=== PATIENT | male | born 1950 | race Two or more races ===

== ENCOUNTER 2019-09-24 22:37 | Emergency (ER) | payer OTHER ==
[~2019-09-24] VITALS: Ht 180.3 cm; Wt 83.0 kg
[~2019-09-24 22:37] MED LIST: ASPI-404 PO; FURO1TAB33 PO; GABA300C10 PO; KEP500T PO; METO25TA5 PO; PRA1C PO; SIMV-8 PO; WARF5TAB PO; WARF7.5T PO
[2019-09-25] MEDS ORDERED: LIDOCAINE VISCOUS 2% 15ML UD MT ONE
[2019-09-25 00:16] LABS: Basophils # (auto) 0.1 uL; Basophils % (auto) 0.6 % (0.0-2.0); Eosinophils # (auto) 0 uL; Eosinophils % (auto) 0.2 % (0.0-7.0); Hematocrit 34.8 % (41.0-53.0); Hemoglobin 11.4 g/dL (13.5-17.5); Lymphocytes # (auto) 0.5 uL; Lymphocytes % (auto) 4.6 % (10.0-50.0); Mean Corpuscular Hemoglobin 30.3 pg (28.0-32.0); Mean Corpuscular Hgb Conc. 32.8 g/dL (32.0-36.0); Mean Corpuscular Volume 92.4 fL (80.0-100.0); Monocytes # (auto) 0.7 uL; Monocytes % (auto) 5.7 % (0.0-12.0); Neutrophils # (auto) 10.4 uL; Neutrophils % (auto) 88.9 % (37.0-80.0); Platelet Count (auto) 150 10^3/uL (140-450); Red Blood Cells 3.77 10^6/uL (4.5-5.90); Red Cell Distribution Width 15.7 % (11.8-14.3); White Blood Cell 11.6 10^3/uL (4.4-10.8)
[2019-09-25 00:31] LABS: Albumin 3.5 g/dL (3.4-5.0); BUN/Creatinine Ratio 27.7; Calcium 8.4 mg/dL (8.5-10.1); Potassium 3.8 mmol/L (3.5-5.1)
[2019-09-25 00:34] LABS: Bilirubin, Total 2.2 mg/dL (0.2-1.0); Total Protein 6.8 g/dL (6.4-8.2)
[2019-09-25 00:41] LABS: INR 1.92 (0.9-1.15); Partial Thromboplastin Time 26.9 sec (23.64-32.05)
[2019-09-25 01:42] LABS: Hematocrit 33.4 % (41.0-53.0)
[2019-09-25] MEDS ORDERED: SODIUM CHLORIDE 0.9% 500 ML IV ONE (02:00)
[2019-09-25] MEDS ORDERED: SODIUM CHLORIDE 0.9% 1,000 ML IV ONE (02:00)
[2019-09-25 04:43] LABS: Hematocrit 32.1 % (41.0-53.0); Hemoglobin 10.6 g/dL (13.5-17.5)
[2019-09-25 07:00] VITALS: BP 115/69
== END 2019-09-25 07:30 | disposition short-term general hospital (02) ==
LOC: EDBD 22:37 → ER 22:39
DX: R04.0 Epistaxis (principal); I11.0 Hypertensive heart disease with heart failure; I50.9 Heart failure, unspecified; I25.2 Old myocardial infarction; Z95.1 Presence of aortocoronary bypass graft; Z86.73 Personal history of transient ischemic attack (TIA), and cerebral infarction without residual deficits; Z88.6 Allergy status to analgesic agent; Z79.899 Other long term (current) drug therapy
CPT/HCPCS: 30905; 36415; 80053; 84484; 85014; 85018; 85025; 85610; 85730; 99285; J7030